=== PATIENT | male | born 2005 | race Hispanic/Latino ===

== ENCOUNTER 2023-11-20 04:32 | Emergency (ER) | payer OTHER ==
[~2023-11-20] VITALS: Ht 182.9 cm; Wt 75.0 kg
[2023-11-20] MEDS ORDERED: DIPHTH,PERTUSS(ACELL),TET VAC 0.5 ML SYRINGE IM ONE (04:45)
[2023-11-20 05:20] VITALS: BP 137/83
== END 2023-11-20 05:20 | disposition home or self-care (01) ==
LOC: ED 04:32
DX: S01.01XA Laceration without foreign body of scalp, initial encounter (principal); W20.8XXA Other cause of strike by thrown, projected or falling object, initial encounter; Z23 Encounter for immunization
CPT/HCPCS: 90471; 90715; 99282

== ENCOUNTER 2024-10-02 01:47 | Emergency (ER) | payer SELFPAY ==
[~2024-10-02] VITALS: Ht 182.9 cm; Wt 85.0 kg
[2024-10-02 02:53] VITALS: BP 145/104
== END 2024-10-02 02:44 | disposition left against medical advice (07) ==
LOC: ED 01:47
DX: M79.89 Other specified soft tissue disorders (principal)
CPT/HCPCS: 99283